=== PATIENT | female | born 1995 | race African-American/Black ===

== ENCOUNTER 2022-08-07 21:23 | Emergency (ER) | payer BC, SELFPAY ==
[2022-08-07] MEDS ORDERED: Acetaminophen 500 MG TAB ONE (21:43)
== END 2022-08-07 21:49 | disposition home or self-care (01) ==
LOC: BURERS 21:23
DX: B34.9 Viral infection, unspecified (principal)
CPT/HCPCS: 99283

== ENCOUNTER 2024-02-13 20:23 | Emergency (ER) | payer SELFPAY ==
[~2024-02-13 20:23] MED LIST: Iopamidol 370 76% 100 ML VIAL ONE
[2024-02-13] MEDS ORDERED: Pantoprazole 40 MG VIAL ONE (21:10)
[2024-02-13] MEDS ORDERED: Ondansetron PF 4 MG/2 ML Vial ONE (21:10)
[2024-02-13] MEDS ORDERED: Ketorolac Tromethamine 30 MG (1 mL) VIAL ONE (21:10)
[2024-02-13 21:46] LABS: ALT (SGPT) 14 U/L (8-55); AST (SGOT) 18 U/L (5-34); Albumin 4.2 g/dL (3.5-5.0); Alkaline Phosphatase 34 U/L (40-110); Anion Gap 14 mmol/L (10-20); BUN (Urea Nitrogen) 10 mg/dL (7.0-18.7); Bilirubin, Total 0.6 mg/dL (0.2-1.2); Calc. Creatinine Clearance 0 mL/min (70-130); Calcium 9.3 mg/dL (7.8-10.44); Carbon Dioxide 23 mmol/L (22-29); Chloride 105 mmol/L (98-107); Estimated GFR 70; Globulin 3.3 g/dL (2.4-3.5); Glucose 81 mg/dL (70-105); Lipase 28 U/L (8-78); Potassium 3.4 mmol/L (3.5-5.1); Protein, Total 7.5 g/dL (6.0-8.3); Sodium 139 mmol/L (136-145)
[2024-02-13 21:55] LABS: #Basophils 0.2 thou/uL (0.0-0.2); #Eosinphils 1.3 thou/uL (0.0-0.7); #Lymphocytes 3.1 thou/uL (1.20-3.40); #Monocytes 0.9 thou/uL (0.11-0.59); %Basophils 1.6 % (0.0-1.0); %Monocytes 7.5 % (0.0-10.0); %Neutrophils 52.9 % (42.0-75.0); Hematocrit 40.5 % (36.0-47.0); Hemoglobin 12.6 g/dL (12.0-16.0); Mean Corpuscular HGB CONC 31.2 g/dL (32.0-36.0); Mean Corpuscular Hemoglobin 24.7 pg (27.0-31.0); Mean Corpuscular Volume 79.1 fl (78.0-98.0); Mean Platelet Volume 6.5 fL (7.4-10.4); Platelet Count 297 10x3/uL (130-400); RBC Distribution Width 14.1 % (11.5-14.5); Red Blood Cell (RBC) Count 5.12 mill/uL (4.20-5.40); White Blood Cell (WBC) Count 11.4 10x3/uL (4.8-10.8)
[2024-02-13 22:05] LABS: BHCG - Serum Negative (NEGATIVE); Pregs Control Background? CLEAR/WHITE (CLR/WHITE); Pregs Control Bar Appear? YES (CONTROL BAR)
[2024-02-13] MEDS ORDERED: Morphine 4 MG/ML VIAL ONE (22:06)
== END 2024-02-13 23:36 | disposition home or self-care (01) ==
LOC: BURERS 20:23
DX: R10.13 Epigastric pain (principal)
CPT/HCPCS: 74177; 80053; 83690; 84703; 85025; 93005; 96374; 96375; C9113; J1885; J2270; J2405; Q9967